=== PATIENT | male | born 1970 | race Caucasian/White ===

== ENCOUNTER 2019-12-07 14:55 | Outpatient (CLI) | payer MEDICARE, MEDICAID, SELFPAY ==
--- NOTE | 2019-12-07 15:00 | USCV_ITS ---
Teddy Renee Age: 49 Gender: M : 1970 Exam Date: 12/07/2019 15:11 Ordering Phys: Khari Argueta MD ([email or web address]) Technologist: Corinna Herrera Exam Location: [place] Indication: Recurrent CVA Risk Factors: Smoker Previous Vascular Surgery: None Right Brachial BP: / Left Brachial BP: / Right Left Velocity (cm/s) Spectral Plaque Velocity (cm/s) Spectral Plaque Syst/Diast Broadening Syst/Diast Broadening 126.80/22.10 Prox CCA 91.70 / 17.60 99.20/ 22.10 Mid CCA 61.55 / 16.10 60.10/ 19.70 Distal CCA 49.60 / 11.10 59.20/ 22.70 Prox ICA 46.20 / 16.30 108.10/43.50 Mid ICA 59.00 / 24.80 90.50/ 36.40 Distal ICA 83.00 / 31.70 105.50 ECA 141.90 1.09 ICA/CCA 1.45 Antegrade Vertebral Antegrade 32.10/ 11.50 cm/s 35.90/ 12.80 cm/s Tri Subclavian Tri 119.9 142.0 0 0 FINDINGS Mild diffuse plaques at the bifurcation and internal carotid arteries bilaterally Intimal thickening in the common carotid arteries bilaterally Antegrade flow in the vertebral arteries bilaterally Normal Doppler flow velocities in the external carotid and subclavian arteries bilaterally CONCLUSIONS Mild diffuse plaques at the bifurcation and internal carotid arteries bilaterally. Intimal thickening in the common carotid arteries bilaterally No significant stenosis, based on the above findings Dr Khari Argueta MD [facility] (Electronically Signed) Final Date: 07 December 2019 18:44 S
== END 2019-12-07 14:56 | disposition home or self-care (01) ==
LOC: RAD 14:59
PROVIDERS: Family Provider Family Medicine; PCP Family Medicine; Visit Provider Internal Medicine Cardiovascular Disease
DX: I63.89 Other cerebral infarction (principal)
CPT/HCPCS: 93880

== ENCOUNTER → 2020-06-19 12:58 | Outpatient (BNVA) | payer MEDICARE, MEDICAID, SELFPAY | PROVIDERS: PCP Family Medicine; Visit Provider Orthopaedic Surgery | DX: M54.5 Low back pain (principal); M47.816 Spondylosis without myelopathy or radiculopathy, lumbar region | CPT/HCPCS: 72114 ==

== ENCOUNTER → 2020-06-23 11:34 | Outpatient (BNVA) | payer MEDICARE, MEDICAID, SELFPAY | PROVIDERS: PCP Family Medicine; Visit Provider Orthopaedic Surgery | DX: Z01.812 Encounter for preprocedural laboratory examination (principal); M75.100 Unspecified rotator cuff tear or rupture of unspecified shoulder, not specified as traumatic; M25.519 Pain in unspecified shoulder | CPT/HCPCS: 87635 ==

== ENCOUNTER 2020-06-28 08:13 | Day surgery (SDC) | payer MEDICARE, MEDICAID, SELFPAY ==
[2020-06-27 09:54] VITALS: BMI 25.1
[2020-06-28] VITALS (9 sets, daily range): BP systolic 120–157; BP diastolic 75–101; PULSE 89–93; RESP 16–20; TEMP 36.2–36.6; O2SAT 92–100
[2020-06-28] MEDS: acetaminophen 500 mg Tablet 1000 MG PO (08:40)
[2020-06-28] MEDS: sodium chloride 0.9% 1,000 ML 30 ML IV (08:47)
[2020-06-28] MEDS: fentaNYL 50 mcg/mL INJ 2mL IVP (09:11)
[2020-06-28] MEDS: midazolam 1 mg/mL INJ 2 mL 2 MG IVP (09:12)
--- NOTE | 2020-06-28 09:12 | P.ANESASSM_ITS ---
Pre-Anesthetic Assessment Pre-Anesthetic Assessment: Height/Weight: Height 1.8 m Weight 81.647 kg Temp Pulse Resp BP Pulse Ox 97.1 F L 92 18 127/78 96 06/28/20 08:34 06/28/20 08:34 06/28/20 09:11 06/28/20 08:34 06/28/20 09:11 Preop Diagnosis: Rotator cuff tear with subacromial decompression left shoulder Proposed Procedure: Operation Date: 06/28/20 11:00 Proposed Procedures p Shoulder Arthroscopy with subacromial decompression 70825 [id number] M75.100(Left) - Mukul Gillette MD s Rotator Cuff Repair(Left) - Mukul Gillette MD Was Beta Anya taken within 24 hours: N/A Last intake: Intake Last Liquid Date 06/27/20 Last Liquid Time 21:00 Last Solid Date 06/27/20 Last Solid Time 19:00 Social: Social History: Tobacco and No alcohol Exam: Pre-Anes Outpt Exam: alert, oriented x 3 and regular rate & rhythm Additional Exam Findings (including area of procedure): BBS decreased, rhonchi Airway: Submandibular: WNL Cervical ROM: WNL MP: 2 Dentition: False Pulmonary: Pulmonary: COPD Comments: h/o DVT CV/HEM: CV/HEM: CAD, HTN, RI and PVD Neuropsych: Neuropsych: CVA and Deficit (None) Anesthetic Plan: ASA status: 3 Anesthesia: General Other: Left interscalen Risk of > 500 ml blood loss (7ml/kg in children): No Meds/Allergies Current Medications: Current Medications Generic Name Dose Route Start Last Admin Trade Name Freq PRN Reason Stop Dose Admin Fentanyl 50 mcg 06/28/20 07:54 06/28/20 09:11 Fentanyl 50 Mcg/ Ml Inj 2ml IVP 50 mcg Q10M PRN Administration Preop Pain Sodium Chloride 1,000 mls @ 30 ml s/hr 06/28/20 08:00 06/28/20 08:47 Sodium Chloride 0.9% IV 06/29/20 07:59 30 mls/hr .Q24H KHLOE Administration PFSH Anesthesia PFSH: Medical History Atypical chest pain The EKG done today, 10/19/2019 revealed normal sinus rhythm with a normal ST- T's. Normal OH and QRS duration. Fuchs cyst CAD (coronary artery disease) COPD (chronic obstructive pulmonary disease) Diabetes DVT (deep venous thrombosis) Environmental allergies Hip fracture requiring operative repair History of CVA (cerebrovascular accident) History of heart attack History of myocardial infarction Hx of emphysema Hypertension Hypothyroid Neuropathy Peripheral vascular disease Presence of IVC filter Type 1 diabetes mellitus Type 2 diabetes mellitus Surgical History H/O arthroscopic knee surgery History of shoulder surgery Hx of cataract extraction Family History Other CAD (coronary artery disease) Cancer Diabetes Hyperlipidemia Hypertension Lung disease Stroke Social History Smoking and tobacco status: current some day smoker cigarettes Packs smoked per day: 1 [ Other cigarette details: 0.5 to 1 pack a day ] Alcohol intake: current Alcohol intake frequency: holidays/special occasions only Alcohol type: wine Data Anesthesia Cardiac Studies: No Data to Display
--- NOTE | 2020-06-28 09:14 | ANES.PROC ---
Anesthesia Procedures Procedure/Date: 06/28/20 Nerve Block ^: Nerve Block 1: Main Anesthesia: general anesthesia Time Out Performed: Yes Consent: requested by attending/covering physician, from patient, risks and benefits reviewed and patient agrees to proceed Nerve block location: interscalene (Left) Anesthesia monitors applied: pulse oximetry, EKG, BP cuff and oxygen Nerve block position: semi sitting Anesthetic Used: ropivicaine 0.5% Amount of anesthesia used (mL): 30 Ultrasound used to: recognize landmarks Nerve Stimulator Used?: No Interscalene/Femoral BLK: 2 stimuplex 22 g needle used for position and inplane approach, visualize local anesthetic spread and no vascular puncture identified Injection: neg aspiration of heme and paresthesia +/- Patient Tolerated Procedure: well Complications: none
[2020-06-28 09:17] LABS: Glucose Point of Care 136 mg/dL (70-110)
--- NOTE | 2020-06-28 09:20 | W.PM.OPSUD ---
Surgery/Procedure H&P Update DATE OF PROCEDURE: June 28, 2020 DATE H&P PERFORMED: 06/13/20 PREOP DIAGNOSIS: Rotator cuff tear with subacromial decompression left shoulder PLANNED PROCEDURE: Operation Date: 06/28/20 11:00 Proposed Procedures p Shoulder Arthroscopy with subacromial decompression [id number] M75.100(Left) - Mukul Gillette MD s Rotator Cuff Repair(Left) - Mukul Gillette MD
--- NOTE | 2020-06-28 09:27 | SUR.PREOP ---
Talked with Dr Gillette about allergy to pcn and cephalexin. Dr. Gillette stated the keflex would be fine we would treat the neause.
[2020-06-28] MEDS: EPINEPHrine 1 mg/mL INJ 2 MG XX (10:24)
--- NOTE | 2020-06-28 11:37 | P.OP_ITS ---
Operative Report Date of procedure: June 28, 2020 Pre-op Diagnosis: Rotator cuff tear with subacromial decompression left shoulder Post-op diagnosis: same Post-op Diagnosis: Partial-thickness tear left rotator cuff, impingement, degenerative joint disease left acromioclavicular joint Post-op Findings: Same Procedure Done: Arthroscopic repair left rotator cuff with bio inductive implant, subacromial decompression, distal clavicle excision Implants: Billy and Nephew Regeneten implant Pathology: none sent Surgeon: Mukul Gillette Anesthesia: General and Nerve Block (Interscalene block) Estimated blood loss (mL): 25 Complications: None Findings: The patient had suture present with a previous rotator cuff repair. The repair itself appeared to be intact other than some irregularities on the bursal and articular aspect consistent with partial tearing. He had residual spurring of his anterior chromium and large ossicles of bone in the subacromial space just lateral to the acromioclavicular joint. He had marked enlargement and instability of the distal clavicle with scar tissue and islands of bone in the inferior lateral clavicle possibly suggesting a incomplete resection Condition: stable Disposition: PACU Procedure: The patient was taken to the operating room after an interscalene block was provided by anesthesia. He was given 2 g of Ancef. He was prepped and draped in the lateral position with his left arm in 15 pounds of traction. A timeout was performed. The shoulder was entered through a posterior portal into the glenohumeral joint. An anterior working portal was fashion. The glenohumeral arthroscopy was performed. He had evidence of a previous biceps tenotomy. Really no significant chondromalacia was identified over the humeral head or glenoid and labral tear attachment seem reasonably healthy. The scope was then moved to the subacromial space and anterior and lateral working Pap portal fashion. Inside the subacromial space prominent residual anterior spurring was identified over the acromion. This was outlined with the werewolf cautery and a 5 5 acromionizer was introduced to remove approximately 5 mm of anterior and inferior spurs converting the acromion to type I morphology. Along the anterior medial aspect of the acromion large ossicles of bone were identified inferior and medial to the acromioclavicular joint. These were circumferentially freed with the werewolf and removed with a grasper. This revealed atypical appearing distal clavicle. The inferior portion seemed more consistent with a scar tissue with islands of bone possibly suggesting a previous and may be incomplete resection. Working through the anterior portal and acromionizer was introduced and approximately 8 mm of distal clavicle resected. Hemostasis provided with the Billy and Nephew Werewolf. Final attention was focused on the rotator cuff. The rotator cuff itself appeared thinned in the centimeter area over its insertion although no full- thickness tearing could be identified. This was thought to be consistent with partial thickness tearing. Decision was made to proceed with a bio augmentation with Billy and Nephew Regeneten implant. Through a more anterior and inferior portal the regenerative graft was introduced. Through a more superior lateral portal for soft tissue gallo were placed, one at each medial corner and one centrally anteriorly and posteriorly. 2 bone gallo were placed laterally into the tuberosity securing the construct. The shoulder was irrigated with saline. Portals were closed with 3-0 Prolene. Sterile dressings were applied. The patient was extubated taken to recovery room in stable condition.
--- NOTE | 2020-06-28 12:12 | ANE.PACU2 ---
Inpatient post-anesthesia follow up: Airway intact: Yes Vital signs: Temperature 97.1 F Pulse Rate 93 Respiratory Rate 20 Blood Pressure 157/101 Pulse Oximetry 93 Oxygen Delivery Me thod Room Air Oxygen Flow Rate 6 Fraction of Inspir ed Oxygen Hydration adequate: Yes Nausea and vomiting: No Pain level: 1 Mental status: Baseline
== END 2020-06-28 13:02 | disposition home or self-care (01) ==
PROVIDERS: PCP Family Medicine; Visit Provider Orthopaedic Surgery
PROC: (CPT 29805; principal; 2020-06-28 11:00)
PROC: (CPT 29824; 2020-06-28 11:00)
DX: M75.102 Unspecified rotator cuff tear or rupture of left shoulder, not specified as traumatic (principal); J44.9 Chronic obstructive pulmonary disease, unspecified; Z86.718 Personal history of other venous thrombosis and embolism; I25.10 Atherosclerotic heart disease of native coronary artery without angina pectoris; I10 Essential (primary) hypertension; I25.2 Old myocardial infarction; Z86.73 Personal history of transient ischemic attack (TIA), and cerebral infarction without residual deficits; E11.9 Type 2 diabetes mellitus without complications; E03.9 Hypothyroidism, unspecified; F17.210 Nicotine dependence, cigarettes, uncomplicated
CPT/HCPCS: 29824; 29826; 29827; 12345; 36416; 64420; 76942; 82962; C1713; J0171; J0690; J2250; J2370; J2405; J2704; J2795; J3010; J3490; J7030

== ENCOUNTER → 2021-03-28 13:24 | Outpatient (BNVA) | payer MEDICARE, MEDICAID, SELFPAY | PROVIDERS: PCP Family Medicine; Visit Provider Orthopaedic Surgery | DX: Z01.812 Encounter for preprocedural laboratory examination (principal); Z20.822 Contact with and (suspected) exposure to COVID-19 | CPT/HCPCS: 87635 ==

== ENCOUNTER 2021-04-04 06:00 | Day surgery (SDC) | payer MEDICARE, MEDICAID, SELFPAY ==
[2021-04-03 14:47] VITALS: BMI 25.9
[2021-04-04] VITALS (12 sets, daily range): BP systolic 100–187; BP diastolic 76–121; PULSE 93–111; RESP 17–22; TEMP 36.2–36.7; O2SAT 93–100
[2021-04-04 06:35] LABS: Glucose Point of Care 150 mg/dL (70-110)
--- NOTE | 2021-04-04 06:35 | ECG_ITS ---
[facility] Test Date: 2021-04-04 Pat Name: Teddy Renee Department: Room: Gender: Male Radiology Physician Assistant: : 1970 Requested By: Mary Mcmillan Order Number: [id number] Diego MD: Roberto Pelaez M.D. Measurements Intervals [place] Rate: 97 P: 76 AL: 161 QRS: 75 QRSD: 101 T: 69 QT: 356 QTc: 453 Interpretive Statements SINUS RHYTHM No previous ECG available for comparison Electronically Signed On 04-04-2021 17:15:02 CDT by Roberto Pelaez M.D. [id number]
[2021-04-04] MEDS: sodium chloride 0.9% 1,000 ML 30 ML IV (06:48)
[2021-04-04] MEDS: acetaminophen 500 mg Tablet 1000 MG PO (06:48)
--- NOTE | 2021-04-04 06:50 | P.ANESASSM_ITS ---
Pre-Anesthetic Assessment Pre-Anesthetic Assessment: Height/Weight: Height 1.8 m Weight 84.368 kg Temp Pulse Resp BP Pulse Ox 98.0 F 94 17 100/76 95 04/04/21 06:12 04/04/21 06:12 04/04/21 06:12 04/04/21 06:12 04/04/21 06:12 Preop Diagnosis: Rotator cuff tear Left shoulder Proposed Procedure: Operation Date: 04/04/21 07:55 Proposed Procedures p Left Rotator Cuff Repair 02196 M75.102(Left) - Mukul Gillette MD s Shoulder Arthroscopy(Left) - Mukul Gillette MD Familial anesthetic complications: NOne Was Beta Anya taken within 24 hours: N/A Was Clonidine taken within 24 hours: N/A Last intake: Intake Last Liquid Date 04/03/21 Last Liquid Time 21:00 Last Solid Date 04/03/21 Last Solid Time 19:00 Social: Social History: No alcohol and No tobacco Exam: Pre-Anes Outpt Exam: alert, oriented x 3, clear to auscultation bilaterally and regular rate & rhythm Airway: MP: 3 Dentition: False CV/HEM: CV/HEM: CAD, DVT, HTN and IA Metabolic: Metabolic: DM Neuropsych: Neuropsych: CVA Anesthetic Plan: ASA status: 3 Anesthesia: General and Regional (specify below) Risk of > 500 ml blood loss (7ml/kg in children): No Meds/Allergies Current Medications: Current Medications Generic Name Dose Route Start Last Admin Trade Name Freq PRN Reason Stop Dose Admin Sodium Chloride 1,000 mls @ 30 ml s/hr 04/04/21 06:15 04/04/21 06:48 Sodium Chloride 0.9% IV 04/05/21 06:14 30 mls/hr .Q24H KHLOE Administration PFSH Anesthesia PFSH: Medical History Atypical chest pain The EKG done today, 10/19/2019 revealed normal sinus rhythm with a normal ST- T's. Normal MI and QRS duration. Fuchs cyst CAD (coronary artery disease) COPD (chronic obstructive pulmonary disease) Diabetes DVT (deep venous thrombosis) Environmental allergies Hip fracture requiring operative repair History of CVA (cerebrovascular accident) History of heart attack History of myocardial infarction Hx of emphysema Hypertension Hypothyroid Neuropathy Peripheral vascular disease Presence of IVC filter Type 1 diabetes mellitus Type 2 diabetes mellitus Surgical History H/O arthroscopic knee surgery History of shoulder surgery Hx of cataract extraction Family History Other CAD (coronary artery disease) Cancer Diabetes Hyperlipidemia Hypertension Lung disease Stroke Social History Smoking and tobacco status: current every day smoker cigarettes Packs smoked per day: 1 [ Other cigarette details: 0.5 to 1 pack a day ] Alcohol intake: current Alcohol intake frequency: holidays/special occasions only Alcohol type: wine Data Anesthesia Other Labs: Laboratory Results - last 48 hr 04/04/21 06:30 POC Glucose 150 H Cardiac Studies: No Data to Display
[2021-04-04 07:00] LABS: Basophils # 0.1 10^3/uL (0.0-0.1); Basophils % 1.1 %; Eosinophils # 0.4 10^3/uL (0.0-0.8); Eosinophils % 3.2 %; Hematocrit 50.4 % (42.0-52.0); Hemoglobin 17.1 g/dL (11.7-16.6); Lymphocytes # 2.6 10^3/uL (0.8-4.8); Lymphocytes % 23.3 %; Mean Corpuscular HGB Conc 33.9 g/dL (30.0-36.0); Mean Corpuscular Hemoglobin 33.4 pg (28.0-34.0); Mean Corpuscular Volume 98.4 fl (80-94); Mean Platelet Volume 8.8 fL (7.4-10.4); Monocytes # 0.9 10^3/uL (0.2-0.9); Monocytes % 8.1 %; Neutrophils # 7.01 10^3/uL (1.8-7.7); Neutrophils % 63.7 %; Nucleated Red Blood Cells % 0 %; Platelet Count 336 10^3/cmm (130-400); Red Blood Count 5.12 10^6/uL (4.1-5.3); Red Cell Distribution Width 13.3 % (12.1-15.1)
--- NOTE | 2021-04-04 07:07 | W.PM.OPSUD ---
Surgery/Procedure H&P Update DATE OF PROCEDURE: April 04, 2021 DATE H&P PERFORMED: 03/25/21 H&P UPDATE INFORMATION: I have reviewed H&P completed within last 30 days PREOP DIAGNOSIS: Rotator cuff tear Left shoulder PLANNED PROCEDURE: Operation Date: 04/04/21 07:55 Proposed Procedures p Left Rotator Cuff Repair 74883 M75.102(Left) - Mukul Gillette MD s Shoulder Arthroscopy(Left) - Mukul Gillette MD
[2021-04-04 07:17] LABS: Anion Gap 14.5 (5-19); Blood Urea Nitrogen 12 mg/dL (6-20); Calcium 8.4 mg/dL (8.5-10.5); Carbon Dioxide 23 mmol/L (22-29); Chloride 107 mmol/L (98-107); Glomerular Filtration Rate 225.9 mL/min (90-130); Glucose 144 mg/dL (65-115); Osmolality Calculated 294 mOsm/kg (285-295); Potassium 3.5 mmol/L (3.5-5.1); Sodium 141 mmol/L (136-145)
[2021-04-04] MEDS: midazolam 1 mg/mL INJ 2 mL 2 MG IVP (07:27)
--- NOTE | 2021-04-04 07:37 | ANES.PROC ---
Anesthesia Procedures Procedure/Date: 04/04/21 Nerve Block ^: Nerve Block 1: Main Anesthesia: general anesthesia Time Out Performed: Yes Consent: requested by attending/covering physician, from patient, from other, risks and benefits reviewed and patient agrees to proceed Nerve block location: interscalene (L) Anesthesia monitors applied: pulse oximetry, EKG, BP cuff and oxygen Nerve block position: semi sitting Anesthetic Used: ropivicaine 0.5% and with decadron (4 mg) Amount of anesthesia used (mL): 20 Ultrasound used to: recognize landmarks, visualize and ID brachial plexus and visualize and ID interscalene groove Nerve Stimulator Used?: No Interscalene/Femoral BLK: 2 stimuplex 22 g needle used for position and inplane approach, visualize local anesthetic spread and no vascular puncture identified Injection: neg aspiration of heme Patient Tolerated Procedure: well and no complications Complications: none
--- NOTE | 2021-04-04 07:39 | SUR.PREOP ---
0735 - Nerve block to shoulder was completed in pre-op by Dr. Mcmillan. Timeout was performed prior to start of procedure. Patient tolerated well.
--- NOTE | 2021-04-04 09:47 | P.OP_ITS ---
Operative Report Date of procedure: April 04, 2021 Pre-op Diagnosis: Rotator cuff tear Left shoulder, recurrent Post-op Diagnosis: Irrepairable left rotator cuff tear Post-op Findings: As above Procedure Done: Limited arthroscopic debridement left shoulder Implants: None Anesthesia: General and Nerve Block (Interscalene block) Estimated blood loss (mL): 5 Findings: The patient had a tear Dony tear of the leading edge of the supraspinatus tendon from the leading edge of the scalp scalp posteriorly approximately 2 cm. The tendon was retracted to the level of the glenoid and despite aggressive efforts at mobilization including release of the bursal and articular adhesions and release of the rotator interval no significant tendon could be mobilized for repair. The posterior portion of the rotator cuff previously passed appeared to be in tact. The subscapularis appeared to be intact. He had a flat acromion consistent with his acromioplasty and his biceps tendon was absent Condition: stable Disposition: PACU Brief History: Mr. Renee is a 50-year-old male who has undergone 4 previous rotator cuff repairs. The last consisted of a biological augmentation by myself in June of this year. He described doing well until this summer when he describes 2 injuries. 1 consists of a fall and the second consisted of injury lifting a battery. He has had persistent left shoulder pain since. An MRI suggested retearing of the rotator cuff. Mr. Renee was a counseled as to the concerns I have about the quality of his rotator cuff. His MRI is suggested some fatty infiltration of muscle. As this did appear to be a new traumatic incident I offered him diagnostic arthroscopy with potential rotator cuff repair. Procedure: The patient was given an interscalene block and taken to the operating room. He was given 2 g of Ancef. He was prepped and draped in the la teral position with his left arm in 15 pounds of traction. A timeout was performed. The shoulder was entered through a posterior portal and an anterior working portal was made. Abundant rotator cuff remnants were identified within the glenohumeral joint which were removed with an incisor shaver. The full- thickness tearing of the anterior supraspinatus was identified. The posterior rotator cuff and subscapularis appear to be generally intact. Arthroscopy was then removed to the subacromial space. Debridement was accomplished across the leading edge of the supraspinatus attempting to mobilize the the supraspinatus tendon. Despite aggressive mobilization the tendon could not be mobilized laterally or anteriorly. A release was accomplished of the rotator cuff interval without additional benefit. Finally the subscapularis tendon was outlined and freed anteriorly and posteriorly to the level of the coracoid. Efforts were made to retracted laterally and posteriorly without benefit. It was felt that the tear was a repairable. Arthroscopy equipment was removed. Portals were closed with 3-0 Prolene. Sterile dressings were applied. The patient was placed in a sling. Options for reconstruction at this point would include a superior capsular reconstruction or reverse total shoulder. The patient has poor biological tendon quality and a history of multiple repairs. A reverse total shoulder may be our best option.
--- NOTE | 2021-04-04 10:13 | SUR.PHASEI ---
0951 PT TO PACU AWAKES TO VOICE BUT QUICKLY BACK TO SLEEP RESP LABORED WITH AUDIBLE EXP WHEEZES, PT ENCOURAGED TO COUGH, HOB AT 30 , LT SHOULDER DRESSING D/I DISTAL FINGERS PINK WARM WITH FAST CAP REFILL. 1000 PT SATS GOOD BUT PT WORK INCREASING WITH LOUD EXP WHEEZES NOTED PT UNABLE TO CLEAR AIRWAYS WITH COUGHING, ALBUTEROL NEB GIVEN, PT BP REMAINS ELEVATED PT DENIES PAIN. 1012 PT REPOSITION UP IN BED PT TX DONE LUNGS WITH COURSE RHONCHI TO BASES AND EXP WHEEZES TO UPPER LOBES, PT MUCH MORE ALERT C/O OF PAIN TO LT NECK AREA, PT ON 3NC SATS 98%. WILL ADDRESS PAIN WITH ORAL MED IN PHASE 2.
== END 2021-04-04 11:17 | disposition home or self-care (01) ==
PROVIDERS: Anesthesiology; PCP Family Medicine; Visit Provider Orthopaedic Surgery
PROC: (CPT 29822; principal; 2021-04-04 07:50)
PROC: (CPT 29805; 2021-04-04 07:50)
DX: M25.512 Pain in left shoulder (principal); M75.102 Unspecified rotator cuff tear or rupture of left shoulder, not specified as traumatic; X50.0XXA Overexertion from strenuous movement or load, initial encounter; Z88.0 Allergy status to penicillin; Z86.73 Personal history of transient ischemic attack (TIA), and cerebral infarction without residual deficits; I25.2 Old myocardial infarction; F17.210 Nicotine dependence, cigarettes, uncomplicated; I25.10 Atherosclerotic heart disease of native coronary artery without angina pectoris
CPT/HCPCS: 29822; 36416; 64415; 76942; 80048; 82962; 85025; 93005; J0690; J1100; J2250; J2405; J2704; J2710; J2795; J3010; J3490; J7030; J7611

== ENCOUNTER 2021-07-09 13:26 | Outpatient (CLI) | payer MEDICARE, SELFPAY ==
--- NOTE | 2021-07-09 13:56 | US_ITS ---
WS: [id number] TESTICULAR ULTRASOUND HISTORY: N50.89 - Other specified disorders of the male genital or... COMPARISON: None available. TECHNIQUE: Real-time and color Doppler imaging or utilized to perform a testicular ultrasound. Right testicle: 3.3 cm x 3.0 cm x 2.7 cm. Normal size and echogenicity. No mass or torsion. Normal color Doppler is present throughout. Systolic and diastolic velocities are both present. No significant hydrocele. Right epididymis: There is a large cyst superior to the testicle with low-level echoes. This measures 2.7 x 3.2 x 2.7 cm and is most likely a spermatocele. Left testicle: 3.6 cm x 2.9 cm x 2.2 cm. Normal size and echogenicity. No mass or torsion. Normal color Doppler is present throughout. Systolic and diastolic velocities are both present. No significant hydrocele. Left epididymis: Normal epididymis with no increased vascularity. US/US scrotum [id number] IMPRESSION: 1. No testicular mass or torsion. 2. Palpable area in the RIGHT scrotum corresponds to a spermatocele measuring 2.7 x 3.2 x 2.7 cm.
== END 2021-07-09 13:27 | disposition home or self-care (01) ==
LOC: RAD 13:27
PROVIDERS: PCP Family Medicine; Visit Provider Surgery
DX: N50.89 Other specified disorders of the male genital organs (principal)
CPT/HCPCS: 76870

== ENCOUNTER → 2021-08-21 14:36 | Outpatient (BNVA) | payer MEDICARE, SELFPAY | PROVIDERS: PCP Family Medicine; Visit Provider Orthopaedic Surgery | DX: M25.512 Pain in left shoulder (principal) | CPT/HCPCS: 73030 ==

== ENCOUNTER → 2022-03-04 15:12 | Outpatient (BNVA) | payer MEDICARE, MEDICAID, SELFPAY | PROVIDERS: PCP Family Medicine; Referring Provider Family Medicine; Visit Provider Orthopaedic Surgery | DX: M12.812 Other specific arthropathies, not elsewhere classified, left shoulder (principal) | CPT/HCPCS: 99214 ==

== ENCOUNTER 2022-03-18 15:54 | Outpatient (CLI) | payer MEDICARE, MEDICAID, SELFPAY ==
--- NOTE | 2022-03-18 16:30 | CT_ITS ---
WS: [id number] CT LEFT SHOULDER, NONCONTRAST. HISTORY: shoulder surgery Technique: All CT scans at [facility] use at least one of these dose optimization techniques: automated exposure control; mA and/or kV adjustment per patient size (includes targeted exams where dose is matched to clinical indication); or iterative reconstruction. DLP: 454.14 mGy.cm COMPARISON: Radiographs 11/19/2021 Mild AC joint arthritis. Minimal joint space narrowing with hypertrophic osteophytes from the distal clavicle and the adjacent acromion. No os acromion. Osteophyte from the distal clavicle encroaches up on the rotator cuff. Mild glenohumeral joint space narrowing. Osteophytic ridging around the glenoid and humeral head. Sub chondral cystic changes and hypertrophic bone formation along the posterior lateral humeral head. Mod erate atrophy of the supraspinatus muscle. No acute fractures are identified. No significant joint ef fusion identified. CT/CT shoulder LT wo con* [id number] IMPRESSION: 1. Mild AC joint arthritis. 2. Mild narrowing of the glenohumeral joint space with hypertrophic bone forma tion. 3. Moderate supraspinatus muscle atrophy. 4. Osteophyte from the distal clavicle encroaches upon the rotator cuff tendon s.
== END 2022-03-18 15:55 | disposition home or self-care (01) ==
LOC: RAD 15:55
PROVIDERS: PCP Family Medicine; Visit Provider Orthopaedic Surgery
DX: M12.812 Other specific arthropathies, not elsewhere classified, left shoulder (principal); Z98.890 Other specified postprocedural states; M13.812 Other specified arthritis, left shoulder; M25.712 Osteophyte, left shoulder; M62.512 Muscle wasting and atrophy, not elsewhere classified, left shoulder; I82.522 Chronic embolism and thrombosis of left iliac vein; F17.210 Nicotine dependence, cigarettes, uncomplicated
CPT/HCPCS: 73200; 99203

== ENCOUNTER 2022-04-14 15:44 | Observation (INO) | payer MEDICARE, MEDICAID, SELFPAY ==
[2022-04-07 14:00] VITALS: BMI 25.9
[2022-04-07 14:26] LABS: Basophils # 0.2 10^3/uL (0.0-0.1); Basophils % 1.4 %; Eosinophils # 0.3 10^3/uL (0.0-0.8); Hematocrit 51.9 % (42.0-52.0); Hemoglobin 17.3 g/dL (11.7-16.6); Lymphocytes # 3.1 10^3/uL (0.8-4.8); Lymphocytes % 29.7 %; Mean Corpuscular HGB Conc 33.3 g/dL (30.0-36.0); Mean Platelet Volume 8.7 fL (7.4-10.4); Monocytes # 0.6 10^3/uL (0.2-0.9); Monocytes % 5.3 %; Neutrophils % 59.9 %; Nucleated Red Blood Cells % 0 %; Platelet Count 327 10^3/cmm (130-400); Red Blood Count 5.24 10^6/uL (4.1-5.3); Red Cell Distribution Width 13.5 % (12.1-15.1); White Blood Count 10.5 10^3/uL (4.0-10.0)
[2022-04-07 14:47] LABS: Blood Urea Nitrogen 11 mg/dL (6-20); Calcium 8.7 mg/dL (8.5-10.5); Carbon Dioxide 22 mmol/L (22-29); Chloride 105 mmol/L (98-107); Glucose 233 mg/dL (65-115); Osmolality Calculated 293 mOsm/kg (285-295); Sodium 138 mmol/L (136-145)
--- NOTE | 2022-04-07 15:15 | ANES.PREANE2 ---
Pre-Anesthetic Assessment Height/Weight: Height 1.8 m Weight 84.368 kg Preop Diagnosis: Rotator cuff tear Left shoulder, recurrent Operation Date: 04/14/22 10:30 Proposed Procedures p left reverse total shoulder [id number](Left) - Mukul Gillette MD Familial anesthetic complications: none Was Beta Anya taken within 24 hours: N/A Was Clonidine taken within 24 hours: N/A Social Tobacco and No alcohol Exam alert, oriented x 3 and regular rate & rhythm Airway Submandibular: within normal limits Cervical ROM: within normal limits Dentition: false Pulmonary Chronic Obstructive Pulmonary Disease CV/HEM Coronary Artery Disease, Hypertension and Peripheral Vascular Disease Metabolic Diabetes Mellitus and Thyroid Disease Musc/skel Lower Back Pain Neuropsych Cerebrovascular Accident Anesthetic Plan ASA status: 3 Anesthesia: General and Regional (specify below) (Left interscalene blk) Medications/Allergies Home Medications Medication Instructions Recorded Confirmed Last Taken Type apixaban 5 mg tablet (Eliquis) 5 mg PO BID 09/14/19 04/07/22 04/07/22 History baclofen 10 mg tablet 10 mg PO TID 09/14/19 04/07/22 04/03/21 History 2000 diazepam 5 mg tablet 5 mg PO BID PRN Anxiety 09/14/19 04/07/22 04/02/21 History empagliflozin 25 mg-linagliptin 5 1 tab PO QAM 09/14/19 04/07/22 04/03/21 08:00 History mg tablet (Glyxambi) furosemide 20 mg tablet (Lasix) 20 mg PO DAILY 09/14/19 04/07/22 04/03/21 08:00 History gabapentin 300 mg capsule 300 mg PO TID 09/14/19 04/07/22 04/02/21 History glipizide 10 mg tablet 20 mg PO BID 09/14/19 04/07/22 04/03/21 20:00 History montelukast 10 mg tablet 10 mg PO DAILY 09/14/19 04/07/22 04/03/21 08:00 History (Singulair) naloxone 4 mg/actuation nasal 4 mg intranasal Q2M PRN Sedation 09/14/19 04/07/22 06/27/20 History spray (Narcan) tiotropium bromide 18 mcg capsule 1 cap inhalation DAILY 09/14/19 04/07/22 04/03/21 12:00 History with inhalation device (Spiriva with HandiHaler) levothyroxine 150 mcg tablet 150 mcg PO DAILY 05/09/20 04/07/22 04/03/21 08:00 History pravastatin 20 mg tablet 20 mg PO DAILY 05/09/20 04/07/22 04/03/21 08:00 History oxycodone 5 mg tablet 5 mg PO Q4H PRN pain #40 tabs 06/28/20 04/07/22 04/04/21 05:00 Rx cetirizine 10 mg tablet 10 mg PO DAILY 04/07/22 04/07/22 Unknown History eszopiclone 2 mg tablet 2 mg PO BEDTIME PRN Insomnia 04/07/22 04/07/22 Unknown History nitroglycerin 0.4 mg sublingual 0.4 mg sublingual Q5M PRN Chest 04/07/22 04/07/22 Unknown History tablet (Nitrostat) Pain sennosides 8.6 mg-docusate sodium 1 tab-cap PO DAILY PRN Constipation 04/07/22 04/07/22 Unknown History 50 mg tablet (Senna-S) Allergies Allergy/AdvReac Type Severity Reaction Status Date / Time cephalexin [From Keflex] Allergy vomit Verified 03/18/22 15:14 Iodinated Contrast Media Allergy anuria Verified 03/18/22 15:14 Penicillins Allergy vomit Verified 03/18/22 15:14 semaglutide [From Ozempic] Allergy vomit Verified 03/18/22 15:14 warfarin Allergy overdose Verified 03/18/22 15:14 [facility] Anesthesia Medical History Atypical chest pain The EKG done today, 10/19/2019 revealed normal sinus rhythm with a normal ST-T's. Normal [place] and QRS duration. Fuchs cyst CAD (coronary artery disease) COPD (chronic obstructive pulmonary disease) Diabetes DVT (deep venous thrombosis) Environmental allergies Hip fracture requiring operative repair History of CVA (cerebrovascular accident) History of heart attack History of myocardial infarction Hx of emphysema Hypertension Hypothyroid Neuropathy Peripheral vascular disease Presence of IVC filter Type 1 diabetes mellitus Type 2 diabetes mellitus Surgical History H/O arthroscopic knee surgery History of shoulder surgery Hx of cataract extraction Family History Other CAD (coronary artery disease) Cancer Diabetes Hyperlipidemia Hypertension Lung disease Stroke Social History Smoking and tobacco status: current every day smoker cigarettes Packs smoked per day: 1 Years cigarettes smoked: 34 [ Other cigarette details: 0.5 to 1 pack a day ] Alcohol intake: current Alcohol intake frequency: holidays/special occasions only Alcohol type: wine Data Anesthesia : 04/07/22 14:17 04/07/22 14:17 Short CBC 04/07/22 Range/Units 14:17 WBC 10.5 H (4.0-10.0) 10^3/uL Hgb 17.3 H (11.7-16.6) g/dL Hct 51.9 (42.0-52.0) % MCV 99.0 H (80-94) fl Plt Count 327 (130-400) 10^3/cmm Neut % (Auto) 59.9 % Neut # (Auto) 6.30 (1.8-7.7) 10^3/uL BMP 04/07/22 14:17 Sodium 138 Potassium 4.0 Chloride 105 Carbon Dioxide 22 BUN 11 Creatinine 0.7 Glucose 233 H Calcium 8.7 Cardiac Studies: No Data to Display
[2022-04-14] VITALS (14 sets, daily range): BP systolic 109–173; BP diastolic 69–104; PULSE 84–127; RESP 16–19; TEMP 36.1–36.7; O2SAT 91–99
[2022-04-14] MEDS: sodium chloride 0.9% 1,000 ML 30 ML IV (08:31)
[2022-04-14] MEDS: oxyCODONE 20 mg ER (12 HR) Tablet PO (08:32)
[2022-04-14] MEDS: CELEcoxib 200 mg Capsule 400 MG PO (08:32)
[2022-04-14 08:33] LABS: Glucose Point of Care 158 mg/dL (70-110)
[2022-04-14] MEDS: gabapentin 300 mg Capsule PO ×2 (08:33→20:20)
--- NOTE | 2022-04-14 09:06 | P.ANESUD_ITS ---
Pre-Anesthetic Update Pre-Anesthetic Assessment: Date of Surgery/Procedure: 04/14/22 Preop Autumn gnosis: Chronic left rotator cuff tear Proposed Procedure: Operation Date: 04/14/22 10:40 Proposed Procedures p left reverse total shoulder [id number],M12.812(Left) - Mukul Gillette MD Any changes to Pre-Anesthetic Assessment?: No Last Intake: Intake Last Liquid Date 04/13/22 Last Liquid Time 20:00 Last Solid Date 04/13/22 Last Solid Time 20:00 Vitals: Temperature 97.4 F L 04/14/22 08:16 Temperature Source Temporal Artery S can 04/14/22 08:16 Pulse Rate 84 04/14/22 08:16 Respiratory Rate 16 04/14/22 08:16 Blood Pressure 117/71 04/14/22 08:16 Blood Pressure Lila n 86 04/14/22 08:16 Pulse Oximetry 96 04/14/22 08:16 Oxygen Delivery Me thod 04/14/22 08:19 Exam: Pre-Anes Outpt Exam: alert, oriented x 3, clear to auscultation bilaterally and regular rate & rhythm Other Pertinent Information: Other Pertinent Information: Patient stated he had some difficulty breathing after his last nerve block, but they placed oxygen on him and he did fine and was able to be discharged that same day. States he would like to have nerve block despite prior SOB. He is being admitted overnight as well, so supplmental o2 prn and close monitoring will be available., Cardiac Studies: No Data to Display
--- NOTE | 2022-04-14 09:07 | ANES.PROC ---
Anesthesia Procedures Procedure/Date: 04/14/22 Nerve Block ^: Nerve Block 1: Main Anesthesia: general anesthesia Time Out Performed: Yes Consent: requested by attending/covering physician, from patient, from other, risks and benefits reviewed and patient agrees to proceed Nerve block location: interscalene (L) Anesthesia monitors applied: pulse oximetry, EKG, BP cuff and oxygen Nerve block position: semi sitting Anesthetic Used: ropivicaine 0.5% (10 cc) and with decadron (4 mg) Ultrasound used to: recognize landmarks, visualize and ID brachial plexus and visualize and ID interscalene groove Nerve Stimulator Used?: No Interscalene/Femoral BLK: 2 stimuplex 22 g needle used for position and inplane approach and visualize local anesthetic spread Injection: neg aspiration of heme and paresthesia +/- Patient Tolerated Procedure: well and no complications Complications: none and pain with procedure Additional Comments: volume of 10 cc used to help prevent SOB
--- NOTE | 2022-04-14 10:26 | P.HP_ITS ---
Same Day Surgery H&P Indication for Procedure/HPI DATE OF PROCEDURE: April 14, 2022 CHIEF COMPLAINT/INDICATIONFOR SURGICAL PROCEDURE: Rotator cuff tear arthropathy left shoulder PREOP DIAGNOSIS: Chronic left rotator cuff tear PLANNED PROCEDURE: Operation Date: 04/14/22 10:40 Proposed Procedures p left reverse total shoulder [id number],M12.812(Left) - Mukul Gillette MD 50 year-old male patient here to follow up from post operative visit. He debridement of an irrrepairable tear 04/04/2021. He states that his pain has not gotten better. He states that he takes percocet without relief.? He is constant discomfort and loss of motion.? 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 He describes a history of for previous operation on the left shoulder rotator cuff tearing, of course the last done by myself.? He describes 3 right rotator cuff repairs but has done well with that.? Continues to take oxycodone for pain Medications/Allergies* Home Medications Medication Instructions Recorded Confirmed Type apixaban 5 mg tablet (Eliquis) 5 mg PO BID 09/14/19 04/07/22 History baclofen 10 mg tablet 10 mg PO TID 09/14/19 04/14/22 History diazepam 5 mg tablet 5 mg PO BID PRN Anxiety 09/14/19 04/14/22 History empagliflozin 25 mg-linagliptin 5 1 tab PO QAM 09/14/19 04/14/22 History mg tablet (Glyxambi) furosemide 20 mg tablet (Lasix) 20 mg PO DAILY 09/14/19 04/14/22 History gabapentin 300 mg capsule 300 mg PO TID 09/14/19 04/14/22 History glipizide 10 mg tablet 20 mg PO BID 09/14/19 04/14/22 History montelukast 10 mg tablet 10 mg PO DAILY 09/14/19 04/14/22 History (Singulair) naloxone 4 mg/actuation nasal 4 mg intranasal Q2M PRN Sedation 09/14/19 04/07/22 History spray (Narcan) tiotropium bromide 18 mcg capsule 1 cap inhalation DAILY 09/14/19 04/14/22 History with inhalation device (Spiriva with HandiHaler) levothyroxine 150 mcg tablet 150 mcg PO DAILY 05/09/20 04/14/22 History pravastatin 20 mg tablet 20 mg PO DAILY 05/09/20 04/14/22 History cetirizine 10 mg tablet 10 mg PO DAILY 04/07/22 04/14/22 History eszopiclone 2 mg tablet (Lunesta) 2 mg PO BEDTIME PRN Insomnia 04/07/22 04/14/22 History nitroglycerin 0.4 mg sublingual 0.4 mg sublingual Q5M PRN Chest 04/07/22 04/07/22 History tablet (Nitrostat) Pain sennosides 8.6 mg-docusate sodium 1 tab-cap PO DAILY PRN Constipation 04/07/22 04/14/22 History 50 mg tablet (Senna-S) Allergies/Adverse Reactions Allergy/AdvReac Type Severity Reaction Status Date / Time cephalexin [From Keflex] Allergy vomit Verified 03/18/22 15:14 Iodinated Contrast Media Allergy anuria Verified 03/18/22 15:14 Penicillins Allergy vomit Verified 03/18/22 15:14 semaglutide [From Ozempic] Allergy vomit Verified 03/18/22 15:14 warfarin Allergy overdose Verified 03/18/22 15:14 Current Medications: Generic Name Dose Route Start Last Admin Trade Name Freq PRN Reason Stop Dose Admin Sodium Chloride 1,000 mls @ 30 mls/hr 04/14/22 08:15 04/14/22 08:31 Sodium Chloride 0.9% IV 04/15/22 08:14 30 mls/hr .Q24H KHLOE Administration Pertinent History/Comorbid Conditions* Medical History (Updated 03/04/22 @ 16:01 by Mukul Gillette MD) Atypical chest pain The EKG done today, 10/19/2019 revealed normal sinus rhythm with a normal ST- T's. Normal [place] and QRS duration. Fuchs cyst CAD (coronary artery disease) COPD (chronic obstructive pulmonary disease) Diabetes DVT (deep venous thrombosis) Environmental allergies Hip fracture requiring operative repair History of CVA (cerebrovascular accident) History of heart attack History of myocardial infarction Hx of emphysema Hypertension Hypothyroid Neuropathy Peripheral vascular disease Presence of IVC filter Type 1 diabetes mellitus Type 2 diabetes mellitus Surgical History (Updated 05/09/20 @ 17:14 by Khari Argueta MD) H/O arthroscopic knee surgery History of shoulder surgery Hx of cataract extraction Family History (Updated 10/19/19 @ 15:12 by Tiffany Bang RN) Diabetes CAD (coronary artery disease) Hyperlipidemia Lung disease Cancer Hypertension Stroke Social History Smoking and tobacco status: current every day smoker cigarettes Packs smoked per day: 1 Years cigarettes smoked: 34 [ Other cigarette details: 0.5 to 1 pack a day ] Alcohol intake: current Alcohol intake frequency: holidays/special occasions only Alcohol type: wine Pertinent Exam Findings alert, oriented x 3, clear to auscultation bilaterally and regular rate & rhythm SHOULDER left Healed arthroscopy scars.? No erythema or swelling:? RANGE OF MOTION:? EXAMINED EXTREMITY ? Flexion:110 ? External Rotation:30 ? He can be abducted 70 degrees INSTABILITY: No instability? ROTATOR CUFF STRENGTH: ? ? ? EXAMINED EXTREMITY ? Abduction Supination: Diminished with pain ? Abduction Pronation: Diminished with pain ? External Rotation: Good with pain ? Belly Press: Negative VASCULAR: Strong radial pulses bilaterally. MOTOR:? 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 SENSATION: Intact to light touch Pertinent Data 3 views of the left shoulder are reviewed dated 11/19/2021.? Views consist of an AP of the shoulder in internal and external rotation and scapular Y radiograph.? There is narrowing of the glenohumeral joint.? There is proximal migration of the humeral head within the glenoid, findings are consistent with rotator cuff tear arthropathy.? R Recommendations Surgery/Procedure today Coding Level of Care Code Acute Heel Sprayer for Milagros Jacobson
[2022-04-14 12:32] LABS: Glucose Point of Care 134 mg/dL (70-110)
[2022-04-14] MEDS: ceFAZolin 2,000 MG in sodium chloride 0.9% (plus) 50 ML 100 MG IV ×2 (12:40→20:20)
--- NOTE | 2022-04-14 15:22 | XR_ITS ---
WS: [id number] Exam: XR shoulder LT min 2V* [id number] Date/Time of Exam: 04/14/2022 3:33 PM Reason For Exam: Left total shoulder Comparison 11/19/2021. A reverse left shoulder prosthesis has been placed and is in satisfactory position. Postoperative violetta nges in the adjacent soft tissues. XR/XR shoulder LT min 2V* [id number] IMPRESSION: 1. Reverse left shoulder prosthesis appearing to be in satisfactory position.
--- NOTE | 2022-04-14 15:25 | P.OP_ITS ---
Operative Report Date of procedure: April 14, 2022 Pre-op diagnosis: Preop Diagnosis Chronic left rotator cuff tear Post-op diagnosis: same Post-op findings: The patient had a complete tear of the supraspinatus and infraspinatus musculature. He had where of his superior glenoid. Procedure done: Right reverse total shoulder Implants: 1) Tornier Aequalis Ascend Flex 4P stem 2) Flex Shoulder System low offset tray +0mm 3) Flex Shoulder System 42 mm +6 mm reversed insert 4) Perform Reversed 29 mm full wedge baseplate 5) Aequalis PerForm Reversed 42 mm standard glenosphere 6) Glenoid screws: central 35 mm, superior 38 mm inferior 34 mm, anterior 26 mm, posterior 22 mm Pathology: none sent Surgeon: Mukul Gillette Anesthesia: General and Nerve Block (Interscalene block) Estimated blood loss (mL): 350 Findings: The patient had a complete tear of his supraspinatus and infraspinatus tendons with proximal migration of the humeral head and glenoid. He had dense adhesions between his deltoid and humeral head. He had evidence of a previous biceps t enodesis. There was wear of his superior glenoid with excessive superior slope. Appearance was consistent with the 17 degree superior slope seen on preoperative CT planning. Condition: stable Disposition: PACU Procedure: An intrascalene blocks provided the holding area. The patient was taken to the operating room and given a general anesthesia. They were given 2 g of Ancef. A Knowles stand was covered and use to support support the arm A timeout was performed. A 10 cm long incision was made over the deltopectoral groove and dissection carried out with a scalpel blade to the deltopectoral interval. The cephalic vein was identified and retracted laterally. Digital dissection was accomplished to free lesions beneath the deltoid and beneath the coracobrachialis musculature. An Jovanni medium tissue protector was used to retract the pectoralis major and the deltoid. The biceps tendon was absent in the bicipital groove suggesting a previous to the tenodesis.. Previous scarred retracted tear of the supraspinatus and infraspinatus was identified. The subscapularis and a capsule was then peeled off of the lesser tuberosity and fixed with 3 tape sutures in a locking Krak?w fashion from superior to inferior. Capsular release was accomplished across the inferior capsule from the glenoid. Utilizing electrocautery the glenoid was exposed circumferentially. The centering guide was used to place the central guidepin at sufficient inferior slope in accordance with our preoperative plan to correct the excessive superior tilt with the full wedge baseplate the wedged glenoid reamers were utilized. A 29 mm full wedge Aequalis PerForm baseplate was secured with a 35 x 6.5 mm central screw, a superior locking 38 mm screw, an inferior locking 34 mm screw, an anterior 26 mm screw and a posterior 22 mm screw. A standard 42 mm Aequalis perFORM Reversed Glenosphere was then placed. Attention was then focused on the humerus. Sequential and broaching of the canal was accomplished up to a size 4B stem with satisfactory stability.. A trial reduction with the 42+6 mm reversed insert provided adequate stability. The final humeral stem, reverse tray and insert were press-fit into place and the shoulder reduced with a stable reduction. 4 drill holes were then made in the bicipital groove. Sutures through the subscapularis were then passed through tunnels at the most superior suture through the most proximal hole. The second pair of sutures through the second hole, the third pair of sutures to the third hole in the fourth suture through the fourth hole. They were tied over a small Monty 4-hole mini plate. The wound was irrigated with a gentamycin antibiotic solution. The deltopectoral interval was closed with 0 Vicryl. The subcutaneous tissues were closed with 2-0 Stratafix. The skin was closed with a running 4-0 Stratafix. Sterile dressings were applied. The patient was placed in a sling, extubated and taken to recovery room in stable condition.
[2022-04-14] MEDS: CELEcoxib 200 mg Capsule PO (16:36)
[2022-04-14] MEDS: oxyCODONE 5 mg IR Tab/Cap PO (16:36)
[2022-04-14] MEDS: acetaminophen 500 mg Tablet 1000 MG PO ×2 (16:36→23:56)
[2022-04-14 16:45] LABS: Glucose Point of Care 156 mg/dL (70-110)
--- NOTE | 2022-04-14 17:00 | ANE.PACU2 ---
Inpatient post-anesthesia follow up: Airway intact: Yes Vital signs: Temperature 98.3 F Pulse Rate 113 Respiratory Rate 20 Blood Pressure 147/84 Pulse Oximetry 91 Oxygen Delivery Me thod Room Air Oxygen Flow Rate 3 Fraction of Inspir ed Oxygen Hydration adequate: Yes Nausea and vomiting: No Pain level: 1 Mental status: Baseline
[2022-04-14] MEDS: insulin lispro 100 unit/1 mL SUBCUT ×2 (17:02→21:08)
[2022-04-14] MEDS: morphine 4 mg/mL SDV 1 mL 2 MG IVP ×3 (18:42→23:56)
[2022-04-14] MEDS: baclofen 10 mg Tablet PO (20:20)
[2022-04-14] MEDS: oxyCODONE 5 mg IR Tab/Cap 15 MG PO (20:21)
[2022-04-14 20:34] LABS: Glucose Point of Care 293 mg/dL (70-110)
[2022-04-14] MEDS: diazePAM 5 mg Tablet PO (22:11)
[2022-04-15] VITALS (9 sets, daily range): BP systolic 125–150; BP diastolic 72–97; PULSE 106–124; RESP 16–20; TEMP 36.4–37; O2SAT 91–94
[2022-04-15] MEDS: oxyCODONE 5 mg IR Tab/Cap 15 MG PO ×2 (00:54→07:53)
--- NOTE | 2022-04-15 01:32 | PC.NURSE ---
after multiple attempts to bring pain down, pt is finally resting in bed, snoring with even respirations. present at bedside.
[2022-04-15] MEDS: morphine 4 mg/mL SDV 1 mL 2 MG IVP ×3 (02:24→11:14)
[2022-04-15] MEDS: ceFAZolin 2,000 MG in sodium chloride 0.9% (plus) 50 ML 100 MG IV (03:47)
[2022-04-15] MEDS: sodium chloride 0.9% 1,000 ML 80 ML IV (03:47)
[2022-04-15 06:49] LABS: Glucose Point of Care 143 mg/dL (70-110)
[2022-04-15] MEDS: atorvastatin 40 mg Tablet 20 MG PO (07:50)
[2022-04-15] MEDS: baclofen 10 mg Tablet PO (07:51)
[2022-04-15] MEDS: cetirizine 10 mg Tablet PO (07:51)
[2022-04-15] MEDS: FUROsemide 20 mg Tablet PO (07:52)
[2022-04-15] MEDS: apixaban 5 mg Tablet PO (07:52)
[2022-04-15] MEDS: levothyroxine 150 mcg Tablet PO (07:52)
[2022-04-15] MEDS: montelukast sodium 10 mg Tablet PO (07:53)
[2022-04-15] MEDS: insulin lispro 100 unit/1 mL SUBCUT (07:59)
[2022-04-15] MEDS: ipratropium 0.5 mg/2.5 mL Neb INHALATION (08:23)
--- NOTE | 2022-04-15 08:47 | P.DS_ITS ---
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 They remained hemodynamically stable. They was resumed on his Eliquis the day after surgery and placed in sequential compression dressings for DVT prophylaxis. The patient was mobilized with occupational therapy on the first postoperative day. Pain control was difficult as the patient was on a pain contract and consumed oxycodone preoperatively. As the pain was reasonably controlled and they were fully mobile they were discharged home. Physical Exam Narrative: On the day of discharge the patient's dressing was clean and dry. He had expected swelling of the left shoulder placement assistant with his anticoagulation. the patient's would fire his deltoid and their biceps. No distal neurovascular deficits were noted. Discharge Data Studies Completed and Pending Completed Studies During Hospitalization Category Date Time Status XR shoulder LT min 2V* [id number] Routine Exams 04/14/22 15:22 Completed Radiology Impressions Shoulder X-Ray 04/14/22 15:22 IMPRESSION: 1. Reverse left shoulder prosthesis appearing to be in satisfactory position. Laboratory Results WBC 10.5 10^3/uL (4.0-10.0) H 04/07/22 14:17 RBC 5.24 10^6/uL (4.1-5.3) 04/07/22 14:17 Hgb 17.3 g/dL (11.7-16.6) H 04/07/22 14:17 Hct 51.9 % (42.0-52.0) 04/07/22 14:17 MCV 99.0 fl (80-94) H 04/07/22 14:17 MCH 33.0 pg (28.0-34.0) 04/07/22 14:17 MCHC 33.3 g/dL (30.0-36.0) 04/07/22 14:17 RDW 13.5 % (12.1-15.1) 04/07/22 14:17 Plt Count 327 10^3/cmm (130-400) 04/07/22 14:17 MPV 8.7 fL (7.4-10.4) 04/07/22 14:17 Neut % (Auto) 59.9 % 04/07/22 14:17 Lymph % (Auto) 29.7 % 04/07/22 14:17 [place] % (Auto) 5.3 % 04/07/22 14:17 Eos % (Auto) 3.0 % 04/07/22 14:17 Baso % (Auto) 1.4 % 04/07/22 14:17 Neut # (Auto) 6.30 10^3/uL (1.8-7.7) 04/07/22 14:17 Lymph # (Auto) 3.1 10^3/uL (0.8-4.8) 04/07/22 14:17 [place] # (Auto) 0.6 10^3/uL (0.2-0.9) 04/07/22 14:17 Eos # (Auto) 0.3 10^3/uL (0.0-0.8) 04/07/22 14:17 Baso # (Auto) 0.2 10^3/uL (0.0-0.1) H 04/07/22 14:17 Nucleated RBC % (auto) 0 % 04/07/22 14:17 Nucleated RBCs # 0.0 /100WBC 04/07/22 14:17 Sodium 138 mmol/L (136-145) 04/07/22 14:17 Potassium 4.0 mmol/L (3.5-5.1) 04/07/22 14:17 Chloride 105 mmol/L (98-107) 04/07/22 14:17 Carbon Dioxide 22 mmol/L (22-29) 04/07/22 14:17 Anion Gap 15.0 (5-19) 04/07/22 14:17 BUN 11 mg/dL (6-20) 04/07/22 14:17 Creatinine 0.7 mg/dL (0.7-1.2) 04/07/22 14:17 GFR Calculation 118.0 mL/min (90-130) 04/07/22 14:17 Glucose 233 mg/dL (65-115) H 04/07/22 14:17 POC Glucose 143 mg/dL (70-110) H 04/15/22 06:31 Calculated Osmolality 293 mOsm/kg (285-295) 04/07/22 14:17 Calcium 8.7 mg/dL (8.5-10.5) 04/07/22 14:17 Vitals Last Vital Signs Temp 98.3 F 04/15/22 07:53 Pulse 113 H 04/15/22 08:23 Resp 20 H 04/15/22 08:23 BP 147/84 04/15/22 07:53 Pulse Ox 91 04/15/22 08:23 O2 Del Method 04/15/22 08:23 O2 Flow Rate 3 04/14/22 15:56 Discharge Plan Discharge Patient Disposition: Home Condition: Stable Prescriptions: New oxycodone 5 mg Tablet 15 mg PO Q4H PRN (Reason: Moderate Pain) 7 Days Qty: 60 0RF acetaminophen 500 mg Tablet 1,000 mg PO Q8H 14 Days Qty: 84 0RF celecoxib 200 mg Capsule 200 mg PO BID 14 Days Qty: 28 0RF Continued levothyroxine 150 mcg tablet 150 mcg PO DAILY pravastatin 20 mg tablet 20 mg PO DAILY montelukast [Singulair] 10 mg tablet 10 mg PO DAILY gabapentin 300 mg capsule 300 mg PO TID baclofen 10 mg tablet 10 mg PO TID glipizide 10 mg tablet 20 mg PO BID diazepam 5 mg tablet 5 mg PO BID PRN (Reason: Anxiety) Glyxambi 25-5 mg tablet 1 tab PO QAM Eliquis 5 mg tablet 5 mg PO BID Narcan 4 mg/actuation spray,non-aerosol 4 mg INTRANASAL Q2M PRN (Reason: Sedation) furosemide [Lasix] 20 mg tablet 20 mg PO DAILY Spiriva with HandiHaler 18 mcg capsule, w/inhalation device 1 cap INHALATION DAILY eszopiclone [Lunesta] 2 mg Tablet 2 mg PO BEDTIME PRN (Reason: Insomnia) cetirizine 10 mg Tablet 10 mg PO DAILY sennosides-docusate sodium [Senna-S] 8.6-50 mg Tablet 1 tab-cap PO DAILY PRN (Reason: Constipation) Nitrostat 0.4 mg Tablet, Sublingual 0.4 mg SUBLINGUAL Q5M PRN (Reason: Chest Pain) Rx Instructions: do not exceed 3 doses per episode Discontinued oxycodone 5 mg tablet 5 mg PO Q4H PRN (Reason: pain) Qty: 40 0RF Discharge Orders: Discharge Order (Routine); Ordered 04/15/22 Ordered By: Mukul Romero Referrals: Mukul Romero MD [Physician] - 04/29/22 1:15 pm Discharge Diet: Advance as tolerated Discharge Activity: Limit activity as instructed Patient Instructions: Opioid Safety Activity Restrictions/Additional Instructions: Okay to shower. No soaking incision in tub Leave arm in sling except when performing exercise Apply FirstIce up to 20 min/hr for pain and swelling Take Celebrex twice a day for the next 15 days for pain , discontinue other anti-inflammatories Take Tylenol 500mg (up to 2 tabs) 3 times a day for mild pain take oxycodone for breakthrough pain. Exercises per Occupational Therapy. We will arrange outpatient therapy in [place] IF HAVE ANY PROBLEMS OR QUESTIONS CALL [facility] AT AND ASK TO HAVE DR. ROMERO PAGED. 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
[2022-04-15] MEDS: gabapentin 300 mg Capsule PO (11:26)
[2022-04-15] MEDS: CELEcoxib 200 mg Capsule PO (11:26)
--- NOTE | 2022-04-15 12:17 | PC.CHAP ---
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 [] Patient/Family/Request visit [] Outpatient visit [] Follow-up visit [] Physician referral [] Code/Alert [x] Routine visit [] Staff referral [] Actively dying [] Patient sleeping [x] Family support [] [] Out of room [] Palliative care [] [] Receiving care in room [] Pre-surgical visit [] Trauma [] Long length of stay [] ICU visit [] Other: Relational/Emotional Strength [] Patient feels connected with others/family/visitors/staff [] Distress [] Loneliness/isolation [] Abandonment Spirituality of Patient [] Person of Dina [] Attends Baptism of their Dina [x] Believes in Prayer [] Reads Bible or Alevism materials [] There are Spiritual issues to be addressed Print Inspector Interventions [x] Prayer [] Active listening [] Non-anxious presence [] Spiritual/emotional support [] Crisis/trauma care [] Spiritual counseling [] Bereavement support [] Provided bereavement packet [] Provided Bible/devotional materials [] Provided toy/stuffed animal, coloring book to patient or family member [] Provided Communion [] Anointing/Luke [] Salvation [] Completed spiritual assessment [] Other: Impact on Illness or Injury [] Angry [] Fearful [] Anxious [] Often cries [] Exhaustion [] Unable to work [] Unable to attend zoroastrian [] Unable to walk/stand [] Unable to read [] Unable to drive [] Unable to eat/drink [] Unable to sleep [] Unable to be with family [] Patient intubated [] Other: Summary Time spent with patient 15 min
== END 2022-04-15 12:57 | disposition home or self-care (01) ==
LOC: MEDSURG 15:44
PROVIDERS: Anesthesiology; Admitting Provider Orthopaedic Surgery; PCP Family Medicine; Visit Provider Orthopaedic Surgery
PROC: (CPT 23472; principal; 2022-04-14 10:20)
DX: M75.122 Complete rotator cuff tear or rupture of left shoulder, not specified as traumatic (principal); E11.65 Type 2 diabetes mellitus with hyperglycemia; I25.10 Atherosclerotic heart disease of native coronary artery without angina pectoris; J44.9 Chronic obstructive pulmonary disease, unspecified; Z86.718 Personal history of other venous thrombosis and embolism; I10 Essential (primary) hypertension; E03.9 Hypothyroidism, unspecified
CPT/HCPCS: 23472; 36416; 73030; 80048; 82962; 85025; 94640; 96372; 97165; C1713; C1776; G0378; J0690; J1100; J1580; J1815; J2270; J2370; J2405; J2704; J2795; J3010; J3490; J7030; J7644

== ENCOUNTER → 2022-04-29 13:26 | Outpatient (BNVA) | payer MEDICARE, MEDICAID, SELFPAY | PROVIDERS: PCP Family Medicine; Visit Provider Orthopaedic Surgery | DX: Z96.612 Presence of left artificial shoulder joint (principal) | CPT/HCPCS: 73030; 99024 ==

== ENCOUNTER → 2022-05-28 13:57 | Outpatient (BNVA) | payer MEDICARE, MEDICAID, SELFPAY | PROVIDERS: PCP Family Medicine; Visit Provider Orthopaedic Surgery | DX: Z47.1 Aftercare following joint replacement surgery (principal); Z96.612 Presence of left artificial shoulder joint; G56.22 Lesion of ulnar nerve, left upper limb | CPT/HCPCS: 73030; 99024 ==

== ENCOUNTER → 2022-07-02 13:45 | Outpatient (BNVA) | payer MEDICARE, MEDICAID, SELFPAY | PROVIDERS: PCP Family Medicine; Visit Provider Orthopaedic Surgery | DX: Z96.612 Presence of left artificial shoulder joint (principal) | CPT/HCPCS: 99024 ==

== ENCOUNTER → 2022-07-30 13:47 | Outpatient (BNVA) | payer MEDICARE, MEDICAID, SELFPAY | PROVIDERS: PCP Family Medicine; Visit Provider Orthopaedic Surgery | DX: Z96.612 Presence of left artificial shoulder joint (principal) | CPT/HCPCS: 99212 ==

== ENCOUNTER → 2023-01-06 13:15 | Outpatient (BNVA) | payer MEDICARE, MEDICAID, SELFPAY | PROVIDERS: PCP Family Medicine; Referring Provider Emergency Medicine; Visit Provider Nurse Practitioner Family | DX: Z96.612 Presence of left artificial shoulder joint (principal); S49.92XA Unspecified injury of left shoulder and upper arm, initial encounter; X58.XXXA Exposure to other specified factors, initial encounter | CPT/HCPCS: 73030; 99213 ==

== ENCOUNTER 2023-02-06 15:10 | Emergency (ER) | payer MEDICARE, MEDICAID, SELFPAY ==
[2023-02-06 15:12] VITALS: BP 134/77; PULSE 97; RESP 18; TEMP 36.4; O2SAT 94; BMI 27.4
[2023-02-06 16:34] LABS: Basophils # 0.2 10^3/uL (0.0-0.1); Basophils % 1.5 %; Eosinophils # 0.2 10^3/uL (0.0-0.8); Eosinophils % 2.1 %; Hematocrit 53.4 % (37-53); Lymphocytes % 30.2 %; Mean Corpuscular HGB Conc 33.1 g/dL (30-55); Mean Corpuscular Hemoglobin 32.9 pg (27-33); Mean Corpuscular Volume 99.3 fl (82-101); Mean Platelet Volume 8.7 fL (7.4-10.4); Monocytes # 0.7 10^3/uL (0.2-0.9); Monocytes % 7.2 %; Neutrophils # 5.82 10^3/uL (1.8-7.7); Neutrophils % 58.5 %; Nucleated Red Blood Cells % 0 %; Platelet Count 295 10^3/cmm (157-399); Red Blood Count 5.38 10^6/uL (3.85-5.65); Red Cell Distribution Width 13.3 % (12.1-15.1); White Blood Count 9.96 10^3/uL (3.29-11.43)
[2023-02-06 16:49] LABS: Alanine Aminotransferase 17 U/L (0-41); Albumin Level 4.2 g/dL (3.5-5.2); Alkaline Phosphatase 142 U/L (40-130); Anion Gap 15.1 (5-19); Aspartate Amino Transferase 13 U/L (0-40); Blood Urea Nitrogen 17 mg/dL (6-20); Calcium 8.9 mg/dL (8.5-10.5); Carbon Dioxide 27 mmol/L (22-29); Chloride 102 mmol/L (98-107); Glomerular Filtration Rate 77.9 mL/min (90-130); Glucose 122 mg/dL (65-115); Osmolality Calculated 293 mOsm/kg (285-295); Potassium 4.1 mmol/L (3.5-5.1); Sodium 140 mmol/L (136-145); Total Bilirubin 0.3 mg/dL (0.15-1.2); Total Protein 7.2 g/dL (6.6-8.7)
[2023-02-06 16:57] LABS: Slide Review Slide Review Perform
--- NOTE | 2023-02-06 17:34 | W.ED.ABDPA2 ---
Documented by User: Luke Jones DO 02/07/23 11:25 HPI - Abdominal Pain General: Chief Complaint: Abdominal Pain Stated Complaint: right side back pain Time Seen by Provider: 02/06/23 17:01 Source: patient Mode of arrival: ambulatory History of Present Illness: 52-year-old male presents with right-sided flank/back pain. Localizes the pain superior to the posterior iliac crest. No dysuria urgency or frequency no nausea vomiting diarrhea no hematochezia melena hematemesis or coffee-ground emesis. No fever sweats chills no rash or skin changes that he has noticed. He does not recall any triggering event. Has tried [id number] and prescription pain medications at home with no relief MD elicited complaint: flank pain Pertinent past history: none Onset (ago): day(s) Pain Consistency: constant Location: R flank (Side and low back on the right) Severity: moderate Quality: sharp Radiation: none Exacerbating factors: nothing Relieving factors: nothing Associated Symptoms: Denies anorexia, belching, bloating, change in bowel habits, change in stool character, chills, coffee ground emesis, constipation, GI cramping, diarrhea, dyspepsia, dysuria, excessive flatus, fever(s), heartburn, hematochezia, hematuria, hematemesis, fecal incontinence, loose stools, melena, nausea, poor appetite, syncope and vomiting Review of Systems Const: Denies: fever(s), chills, fatigue or malaise ENMT: Denies: throat pain, ear or mastoid pain, nasal discharge or nasal congestion Card: Denies: chest pain or syncope Resp: Denies: dyspnea, productive cough or non-productive cough GI: Denies: abdominal pain, nausea, vomiting, hematemesis, coffee ground emesis, heartburn, diarrhea, constipation, bloating, GI cramping, belching, excessive flatus, fecal incontinence, change in bowel habits, change in stool character, hematochezia or melena : Reports: flank pain; Denies: dysuria, urinary frequency or hematuria Musc: Reports: back pain Skin/Breast: Denies: rash or pruritus PFSH ED PFSH: Medical History Atypical chest pain The EKG done today, 10/19/2019 revealed normal sinus rhythm with a normal ST-T's. Normal AL and QRS duration. Fuchs cyst CAD (coronary artery disease) COPD (chronic obstructive pulmonary disease) Diabetes Diabetes mellitus DVT (deep venous thrombosis) Environmental allergies Hip fracture requiring operative repair History of CVA (cerebrovascular accident) History of heart attack History of myocardial infarction Hx of emphysema Hypertension Hypothyroid Neuropathy Peripheral vascular disease Presence of IVC filter Type 1 diabetes mellitus Type 2 diabetes mellitus Surgical History H/O arthroscopic knee surgery History of carpal tunnel repair History of shoulder surgery History of shoulder surgery Hx of cataract extraction Family History Other CAD (coronary artery disease) Cancer Diabetes Hyperlipidemia Hypertension Lung disease Stroke Social History Smoking and tobacco status: current every day smoker cigarettes Packs smoked per day: 1 Years cigarettes smoked: 34 [ Other cigarette details: 0.5 to 1 pack a day ] Alcohol intake: current Alcohol intake frequency: holidays/special occasions only Alcohol type: wine Substance/Drug Use: never Physical Exam Const: GENERAL APPEARANCE: cooperative and comfortable ORIENTATION/CONSCIOUSNESS: Yes awake, Yes oriented to person, Yes oriented to place and Yes oriented to time HENMT: COMMON NORMALS: normocephalic, atraumatic and hearing grossly normal bilaterally HEAD & SCALP: normocephalic and atraumatic Resp: COMMON NORMALS: normal respiratory effort, No retractions, No use of accessory muscles and clear to auscultation bilaterally AUSCULTATION: clear to auscultation bilaterally Cardio: COMMON NORMALS: regular rate, regular rhythm and No murmurs present (Cardio) RATE: regular rate RHYTHM: regular rhythm GI: COMMON NORMALS: Soft to palpation and No hepatosplenomegaly present AUSCULTATION: Yes normoactive bowel sounds PALPATION: Yes Soft to palpation, No Tenderness to palpation present (GI), No Guarding due to palpation present (GI) and Yes No hepatosplenomegaly present Extremity: COMMON NORMALS: normal to inspection, capillary refill normal, no clubbing, cyanosis or edema, no calf tenderness and no pedal edema Neuro: SENSORIUM/ORIENTATION: Yes oriented to person, Yes oriented to place and Yes oriented to time GAIT: Yes Normal gait present MOTOR EXAM: 5/5 motor strength present throughout DEEP TENDON REFLEXES: Right patellar reflex intensity grade: 2+ and Left patellar reflex intensity grade: 2+ Psych: OTHER: Straight leg raising is negative. Skin: COMMON NORMALS: no rashes or lesions noted GENERAL SKIN EXAM: no rashes or lesions noted Course Vital Signs: Vital signs: Vital Signs Temperature 97.6 F 02/06/23 15:12 Pulse Rate 96 02/06/23 20:14 Respiratory Rate 16 02/06/23 20:14 Blood Pressure 134/77 02/06/23 15:12 Pulse Oximetry 93 02/06/23 20:14 Oxygen Delivery Me thod Room Air 02/06/23 18:54 MDM - Abdominal Pain Medical Decision Making Care signed out to Dr. Carpio at change of shift. See final notes for diagnosis and disposition. 52-year-old male complains of right pain over his iliac crest. He states the pain is still there. He was checked out to me by Dr. Jones at shift change. He was given 4 mg of morphine without much relief. He has a contrast allergy. His white blood cell count is normal. Hemoglobin is 17.7. He is a smoker. BMP is not remarkable. He has an IVC filter in place. CT of the abdomen pelvis is nonacute. Symptoms will be treated. He will be allowed discharge. He is anticoagulated. His urinalysis is as yet unavailable at the time of discharge. Lab Data 02/06/23 16:07 02/06/23 16:07 Labs/Radiology: Radiology Impressions Abdomen/Pelvis CT 02/06/23 18:05 IMPRESSION: 1. No acute findings. 2. Infrarenal IVC filter with the limbs extending through the outer wall of the vessel. 3. Small pulmonary nodules measuring up to 3 mm. For patients at low risk (minimal or absent history of smoking and of other known risk factors), no routine follow-up is indicated. For patients at high risk (history of smoking or of other known risk factors), consider optional CT Chest at 12 months. (Reference: Yael) References: Yael Bryant et al. Guidelines for Management of Incidental Pulmonary Nodules Detected on CT Images: From the Fleischner Society 2017. Radiology. 2017;284(1):228-243. COMMENTS: For patients with an IVC filter, recommend assessment for a management plan for the patient's IVC filter. If there is no established management plan, recommend referral to an interventional clinician on a nonemergent basis for evaluation. Laboratory Results WBC 9.96 10^3/uL (3.29-11.43) 02/06/23 16:07 RBC 5.38 10^6/uL (3.85-5.65) 02/06/23 16:07 Hgb 17.70 g/dL (11.27-16.99) H 02/06/23 16:07 Hct 53.4 % (37-53) H 02/06/23 16:07 MCV 99.3 fl (82-101) 02/06/23 16:07 MCH 32.9 pg (27-33) 02/06/23 16:07 MCHC 33.1 g/dL (30-55) 02/06/23 16:07 RDW 13.3 % (12.1-15.1) 02/06/23 16:07 Plt Count 295 10^3/cmm (157-399) 02/06/23 16:07 MPV 8.7 fL (7.4-10.4) 02/06/23 16:07 Neut % (Auto) 58.5 % 02/06/23 16:07 Lymph % (Auto) 30.2 % 02/06/23 16:07 [place] % (Auto) 7.2 % 02/06/23 16:07 Eos % (Auto) 2.1 % 02/06/23 16:07 Baso % (Auto) 1.5 % 02/06/23 16:07 Neut # (Auto) 5.82 10^3/uL (1.8-7.7) 02/06/23 16:07 Lymph # (Auto) 3.0 10^3/uL (0.8-4.8) 02/06/23 16:07 [place] # (Auto) 0.7 10^3/uL (0.2-0.9) 02/06/23 16:07 Eos # (Auto) 0.2 10^3/uL (0.0-0.8) 02/06/23 16:07 Baso # (Auto) 0.2 10^3/uL (0.0-0.1) H 02/06/23 16:07 Nucleated RBC % (auto) 0 % 02/06/23 16:07 Nucleated RBCs # 0.0 /100WBC 02/06/23 16:07 Sodium 140 mmol/L (136-145) 02/06/23 16:07 Potassium 4.1 mmol/L (3.5-5.1) 02/06/23 16:07 Chloride 102 mmol/L (98-107) 02/06/23 16:07 Carbon Dioxide 27 mmol/L (22-29) 02/06/23 16:07 Anion Gap 15.1 (5-19) 02/06/23 16:07 BUN 17 mg/dL (6-20) 02/06/23 16:07 Creatinine 1.0 mg/dL (0.7-1.2) 02/06/23 16:07 GFR Calculation 77.9 mL/min (90-130) L 02/06/23 16:07 Glucose 122 mg/dL (65-115) H 02/06/23 16:07 Calculated Osmolality 293 mOsm/kg (285-295) 02/06/23 16:07 Calcium 8.9 mg/dL (8.5-10.5) 02/06/23 16:07 Total Bilirubin 0.3 mg/dL (0.15-1.2) 02/06/23 16:07 AST 13 U/L (0-40) 02/06/23 16:07 ALT 17 U/L (0-41) 02/06/23 16:07 Alkaline Phosphatase 142 U/L (40-130) H 02/06/23 16:07 Total Protein 7.2 g/dL (6.6-8.7) 02/06/23 16:07 Albumin 4.2 g/dL (3.5-5.2) 02/06/23 16:07 Globulin 3.0 g/dL (1.3-4.6) 02/06/23 16:07 Discharge Plan Discharge Patient Disposition: Home Clinical Impression: Right flank pain Condition: Stable Prescriptions: New hydrocodone-acetaminophen 5-325 mg tablet 1 tab PO Q8H PRN (Reason: pain) Qty: 7 0RF ondansetron 4 mg film 4 mg PO DAILY PRN (Reason: nausea and vomiting) Qty: 10 0RF No Action levothyroxine 150 mcg tablet 150 mcg PO DAILY pravastatin 20 mg tablet 20 mg PO DAILY montelukast [Singulair] 10 mg tablet 10 mg PO DAILY gabapentin 300 mg capsule 300 mg PO TID baclofen 10 mg tablet 10 mg PO TID glipizide 10 mg tablet 20 mg PO BID diazepam 5 mg tablet 5 mg PO BID PRN (Reason: Anxiety) Glyxambi 25-5 mg tablet 1 tab PO QAM Eliquis 5 mg tablet 5 mg PO BID Narcan 4 mg/actuation spray,non-aerosol 4 mg INTRANASAL Q2M PRN (Reason: Sedation) furosemide [Lasix] 20 mg tablet 20 mg PO DAILY Spiriva with HandiHaler 18 mcg capsule, w/inhalation device 1 cap INHALATION DAILY pregabalin [Lyrica] 75 mg capsule 75 mg PO TID glipizide 5 mg tablet 5 mg PO BID metformin 500 mg tablet 500 mg PO TID (DME) standing walker See Rx Instructions .Route .MEDSUPPLY Qty: 1 0RF Rx Instructions: As directed eszopiclone [Lunesta] 2 mg Tablet 2 mg PO BEDTIME PRN (Reason: Insomnia) cetirizine 10 mg Tablet 10 mg PO DAILY sennosides-docusate sodium [Senna-S] 8.6-50 mg Tablet 1 tab-cap PO DAILY PRN (Reason: Constipation) Nitrostat 0.4 mg Tablet, Sublingual 0.4 mg SUBLINGUAL Q5M PRN (Reason: Chest Pain) Rx Instructions: do not exceed 3 doses per episode Discharge Orders: Discharge ED (Routine); Ordered 02/06/23 Ordered By: Rudolph Carpio Referrals: Shay Campbell [Primary Care Provider] - Patient Instructions: Flank Pain (ED), Opioid Safety, Pain Management Activity Restrictions/Additional Instructions: Return for fever, vomiting liquids or medications, worsening pain despite treatment, any other concerning symptoms. See your doctor at the beginning of the week. Coding Level of Care Code ED Color Expert for g Fwd Documented by User: [email or web address] Carpio DO 02/06/23 20:03 HPI - Abdominal Pain General: Chief Complaint: Abdominal Pain Stated Complaint: right side back pain Time Seen by Provider: 02/06/23 17:01 History of Present Illness: Patient presenting with right-sided iliac pain [facility] ED PFSH: Medical History Atypical chest pain The EKG done today, 10/19/2019 revealed normal sinus rhythm with a normal ST-T's. Normal AL and QRS duration. Fuchs cyst CAD (coronary artery disease) COPD (chronic obstructive pulmonary disease) Diabetes Diabetes mellitus DVT (deep venous thrombosis) Environmental allergies Hip fracture requiring operative repair History of CVA (cerebrovascular accident) History of heart attack History of myocardial infarction Hx of emphysema Hypertension Hypothyroid Neuropathy Peripheral vascular disease Presence of IVC filter Type 1 diabetes mellitus Type 2 diabetes mellitus Surgical History H/O arthroscopic knee surgery History of carpal tunnel repair History of shoulder surgery History of shoulder surgery Hx of cataract extraction Family History Other CAD (coronary artery disease) Cancer Diabetes Hyperlipidemia Hypertension Lung disease Stroke Social History Smoking and tobacco status: current every day smoker cigarettes Packs smoked per day: 1 Years cigarettes smoked: 34 [ Other cigarette details: 0.5 to 1 pack a day ] Alcohol intake: current Alcohol intake frequency: holidays/special occasions only Alcohol type: wine Substance/Drug Use: never Course Vital Signs: Vital signs: Vital Signs Temperature 97.6 F 02/06/23 15:12 Pulse Rate 96 02/06/23 20:14 Respiratory Rate 16 02/06/23 20:14 Blood Pressure 134/77 02/06/23 15:12 Pulse Oximetry 93 02/06/23 20:14 Oxygen Delivery Me thod Room Air 02/06/23 18:54 MDM - Abdominal Pain Medical Decision Making 52-year-old male complains of right pain over his iliac crest. He states the pain is still there. He was checked out to me by Dr. Jones at shift change. He was given 4 mg of morphine without much relief. He has a contrast allergy. His white blood cell count is normal. Hemoglobin is 17.7. He is a smoker. BMP is not remarkable. He has an IVC filter in place. CT of the abdomen pelvis is nonacute. Symptoms will be treated. He will be allowed discharge. He is anticoagulated. His urinalysis is as yet unavailable at the time of discharge. Lab Data 02/06/23 16:07 02/06/23 16:07 Labs/Radiology: Radiology Impressions Abdomen/Pelvis CT 02/06/23 18:05 IMPRESSION: 1. No acute findings. 2. Infrarenal IVC filter with the limbs extending through the outer wall of the vessel. 3. Small pulmonary nodules measuring up to 3 mm. For patients at low risk (minimal or absent history of smoking and of other known risk factors), no routine follow-up is indicated. For patients at high risk (history of smoking or of other known risk factors), consider optional CT Chest at 12 months. (Reference: Yael) References: Yael Bryant, et al. Guidelines for Management of Incidental Pulmonary Nodules Detected on CT Images: From the Fleischner Society 2017. Radiology. 2017;284(1):228-243. COMMENTS: For patients with an IVC filter, recommend assessment for a management plan for the patient's IVC filter. If there is no established management plan, recommend referral to an interventional clinician on a nonemergent basis for evaluation. Laboratory Results WBC 9.96 10^3/uL (3.29-11.43) 02/06/23 16:07 RBC 5.38 10^6/uL (3.85-5.65) 02/06/23 16:07 Hgb 17.70 g/dL (11.27-16.99) H 02/06/23 16:07 Hct 53.4 % (37-53) H 02/06/23 16:07 MCV 99.3 fl (82-101) 02/06/23 16:07 MCH 32.9 pg (27-33) 02/06/23 16:07 MCHC 33.1 g/dL (30-55) 02/06/23 16:07 RDW 13.3 % (12.1-15.1) 02/06/23 16:07 Plt Count 295 10^3/cmm (157-399) 02/06/23 16:07 MPV 8.7 fL (7.4-10.4) 02/06/23 16:07 Neut % (Auto) 58.5 % 02/06/23 16:07 Lymph % (Auto) 30.2 % 02/06/23 16:07 [place] % (Auto) 7.2 % 02/06/23 16:07 Eos % (Auto) 2.1 % 02/06/23 16:07 Baso % (Auto) 1.5 % 02/06/23 16:07 Neut # (Auto) 5.82 10^3/uL (1.8-7.7) 02/06/23 16:07 Lymph # (Auto) 3.0 10^3/uL (0.8-4.8) 02/06/23 16:07 [place] # (Auto) 0.7 10^3/uL (0.2-0.9) 02/06/23 16:07 Eos # (Auto) 0.2 10^3/uL (0.0-0.8) 02/06/23 16:07 Baso # (Auto) 0.2 10^3/uL (0.0-0.1) H 02/06/23 16:07 Nucleated RBC % (auto) 0 % 02/06/23 16:07 Nucleated RBCs # 0.0 /100WBC 02/06/23 16:07 Sodium 140 mmol/L (136-145) 02/06/23 16:07 Potassium 4.1 mmol/L (3.5-5.1) 02/06/23 16:07 Chloride 102 mmol/L (98-107) 02/06/23 16:07 Carbon Dioxide 27 mmol/L (22-29) 02/06/23 16:07 Anion Gap 15.1 (5-19) 02/06/23 16:07 BUN 17 mg/dL (6-20) 02/06/23 16:07 Creatinine 1.0 mg/dL (0.7-1.2) 02/06/23 16:07 GFR Calculation 77.9 mL/min (90-130) L 02/06/23 16:07 Glucose 122 mg/dL (65-115) H 02/06/23 16:07 Calculated Osmolality 293 mOsm/kg (285-295) 02/06/23 16:07 Calcium 8.9 mg/dL (8.5-10.5) 02/06/23 16:07 Total Bilirubin 0.3 mg/dL (0.15-1.2) 02/06/23 16:07 AST 13 U/L (0-40) 02/06/23 16:07 ALT 17 U/L (0-41) 02/06/23 16:07 Alkaline Phosphatase 142 U/L (40-130) H 02/06/23 16:07 Total Protein 7.2 g/dL (6.6-8.7) 02/06/23 16:07 Albumin 4.2 g/dL (3.5-5.2) 02/06/23 16:07 Globulin 3.0 g/dL (1.3-4.6) 02/06/23 16:07 Discharge Plan Discharge Patient Disposition: Home Clinical Impression: Right flank pain Condition: Stable Prescriptions: New hydrocodone-acetaminophen 5-325 mg tablet 1 tab PO Q8H PRN (Reason: pain) Qty: 7 0RF ondansetron 4 mg film 4 mg PO DAILY PRN (Reason: nausea and vomiting) Qty: 10 0RF No Action levothyroxine 150 mcg tablet 150 mcg PO DAILY pravastatin 20 mg tablet 20 mg PO DAILY montelukast [Singulair] 10 mg tablet 10 mg PO DAILY gabapentin 300 mg capsule 300 mg PO TID baclofen 10 mg tablet 10 mg PO TID glipizide 10 mg tablet 20 mg PO BID diazepam 5 mg tablet 5 mg PO BID PRN (Reason: Anxiety) Glyxambi 25-5 mg tablet 1 tab PO QAM Eliquis 5 mg tablet 5 mg PO BID Narcan 4 mg/actuation spray,non-aerosol 4 mg INTRANASAL Q2M PRN (Reason: Sedation) furosemide [Lasix] 20 mg tablet 20 mg PO DAILY Spiriva with HandiHaler 18 mcg capsule, w/inhalation device 1 cap INHALATION DAILY pregabalin [Lyrica] 75 mg capsule 75 mg PO TID glipizide 5 mg tablet 5 mg PO BID metformin 500 mg tablet 500 mg PO TID (DME) standing walker See Rx Instructions .Route .MEDSUPPLY Qty: 1 0RF Rx Instructions: As directed eszopiclone [Lunesta] 2 mg Tablet 2 mg PO BEDTIME PRN (Reason: Insomnia) cetirizine 10 mg Tablet 10 mg PO DAILY sennosides-docusate sodium [Senna-S] 8.6-50 mg Tablet 1 tab-cap PO DAILY PRN (Reason: Constipation) Nitrostat 0.4 mg Tablet, Sublingual 0.4 mg SUBLINGUAL Q5M PRN (Reason: Chest Pain) Rx Instructions: do not exceed 3 doses per episode Discharge Orders: Discharge ED (Routine); Ordered 02/06/23 Ordered By: Rudolph Carpio Referrals: Shay Campbell [Primary Care Provider] - Patient Instructions: Flank Pain (ED), Opioid Safety, Pain Management Activity Restrictions/Additional Instructions: Return for fever, vomiting liquids or medications, worsening pain despite treatment, any other concerning symptoms. See your doctor at the beginning of the week. Coding Level of Care Code ED Color Expert for Milagros Jacobson
--- NOTE | 2023-02-06 18:05 | CTR_ITS ---
PROCEDURE INFORMATION: Exam: CT Abdomen And Pelvis Without Contrast Exam date and time: 02/06/2023 6:26 PM Age: 52 years old Clinical indication: Abdominal pain; Localized; Right; Prior surgery; Surgery date: 6+ months; Surgery type: Ivc filter. Left iliac stent; Patient HX: C/O RT sided abd pain x 1 week; Additional info: Abdominal pain/r flank pain TECHNIQUE: Imaging protocol: Computed tomography of the abdomen and pelvis without contrast. Radiation optimization: All CT scans at this facility use at least one of these dose optimization techniques: automated exposure control; mA and/or kV adjustment per patient size (includes targeted exams where dose is matched to clinical indication); or iterative reconstruction. REPORTING DATA: Count of CT and Cardiac NM exams in prior 12 months: This patient has received 2 known CTs and 0 known cardiac nuclear medicine studies in the 12 months prior to the current study. COMPARISON: US scrotum [id number] 07/09/2021 2:03 PM RADIATION DOSE METRICS: Total DLP (mGy-cm): 663.37 FINDINGS: Lungs: Multiple small nodules in the right lower lobe measuring up to 3 mm. Liver: Normal. No mass. Gallbladder and bile ducts: Normal. No calcified stones. No ductal dilation. Pancreas: Normal. No ductal dilation. Spleen: Normal. No splenomegaly. Adrenal glands: Normal. No mass. Kidneys and ureters: Normal. No hydronephrosis. Stomach and bowel: Unremarkable. No obstruction. No mucosal thickening. Appendix: The appendix is visualized and is normal. Intraperitoneal space: Unremarkable. No free air. No significant fluid collection. Vasculature: Infrarenal IVC filter, with the limbs extending outside the vessel wall. Mild calcified plaque in the arteries. No aneurysm. Lymph nodes: Unremarkable. No enlarged lymph nodes. Urinary bladder: Unremarkable as visualized. Reproductive: Unremarkable as visualized. Bones/joints: Degenerative changes of the spine. No acute fracture. Soft tissues: 5.6 cm lipoma in the left tensor fasciae latae muscle. CT/CT abdomen pelvis wo con [id number] IMPRESSION: 1. No acute findings. 2. Infrarenal IVC filter with the limbs extending through the outer wall of the vessel. 3. Small pulmonary nodules measuring up to 3 mm. For patients at low risk (minimal or absent history of smoking and of other known risk factors), no routine follow-up is indicated. For patients at high risk (history of smoking or of other known risk factors), consider optional CT Chest at 12 months. (Reference: Yael) References: Yael Bryant et al. Guidelines for Management of Incidental Pulmonary Nodules Detected on CT Images: From the Fleischner Society 2017. Radiology. 2017;284(1):228-243. COMMENTS: For patients with an IVC filter, recommend assessment for a management plan for the patient's IVC filter. If there is no established management plan, recommend referral to an interventional clinician on a nonemergent basis for evaluation.
[2023-02-06] MEDS: morphine 4 mg/mL SDV 1 mL IVP (18:51)
[2023-02-06 18:54] VITALS: RESP 18; O2SAT 98
[2023-02-06 19:10] VITALS: RESP 18
[2023-02-06 20:14] VITALS: PULSE 96; RESP 16; O2SAT 93
== END 2023-02-06 20:15 | disposition home or self-care (01) ==
PROVIDERS: Physician Assistant; Emergency Provider Emergency Medicine; PCP Family Medicine
DX: R10.9 Unspecified abdominal pain (principal); Z79.01 Long term (current) use of anticoagulants; Z79.84 Long term (current) use of oral hypoglycemic drugs; F17.210 Nicotine dependence, cigarettes, uncomplicated; I25.10 Atherosclerotic heart disease of native coronary artery without angina pectoris; J44.9 Chronic obstructive pulmonary disease, unspecified; E11.9 Type 2 diabetes mellitus without complications; Z86.73 Personal history of transient ischemic attack (TIA), and cerebral infarction without residual deficits; I25.2 Old myocardial infarction
CPT/HCPCS: 36415; 74176; 80053; 85025; 96374; 99285; J2270

== ENCOUNTER → 2024-03-28 15:15 | Outpatient (BNVA) | payer MEDICARE, SELFPAY | PROVIDERS: PCP Family Medicine; Visit Provider Podiatrist Foot & Ankle Surgery | DX: B35.1 Tinea unguium (principal); G62.9 Polyneuropathy, unspecified; E11.65 Type 2 diabetes mellitus with hyperglycemia; I73.9 Peripheral vascular disease, unspecified; B35.3 Tinea pedis; Z79.84 Long term (current) use of oral hypoglycemic drugs | CPT/HCPCS: 11721; 99204 ==

== ENCOUNTER 2024-04-25 14:00 | Outpatient (CLI) | payer MEDICARE, SELFPAY ==
--- NOTE | 2024-04-25 14:10 | CT_ITS ---
WS: [id number] LDCT LUNG CANCER SCREENING HISTORY: NICOTINE DEPENDENCE,CIGARETTES TECHNIQUE: Axial imaging performed from the apices to 1 cm below the costophrenic angles. Coronal and sagittal reformats are submitted with axial MIP series. All CT scans at [facility] use at least one of these dose optimization techniques: automated exposure control; mA and/or kV adjustment per patient size (includes targeted exams where dose is matched to clinical indication); or iterativ e reconstruction. DLP: 75.61 mGy.cm DIvol: Mean CTDIvol: 1.50 (mGy) COMPARISON: None available. Diagnostic quality: Satisfactory Lungs: Mild pulmonary hyperinflation. Subpleural 4 mm nodule RIGHT middle lobe. Pleural tag at the RI GHT apex is 3 mm. No mass or endobronchial lesions. Heart: Normal size heart with no pericardial effusion.. Other findings: No mediastinal or hilar adenopathy. Normal size aorta and pulmonary artery. Stomach i s markedly distended with food products. No adrenal mass. CT/CT lung screening [id number] IMPRESSION: LUNG-RADS: 2-Benign Appearance or Behavior FOLLOW UP: 12 Month: Continue annual screening with LDCT OTHER FINDINGS (S MODIFIER): None.
== END 2024-04-25 14:01 | disposition home or self-care (01) ==
LOC: RAD 14:03
PROVIDERS: PCP Family Medicine; Visit Provider Family Medicine
DX: Z12.2 Encounter for screening for malignant neoplasm of respiratory organs (principal); F17.210 Nicotine dependence, cigarettes, uncomplicated; R91.1 Solitary pulmonary nodule
CPT/HCPCS: 71271

== ENCOUNTER → 2024-06-14 14:00 | Outpatient (BNVA) | payer MEDICARE, MEDICAID, SELFPAY | PROVIDERS: PCP Family Medicine; Visit Provider Podiatrist Foot & Ankle Surgery | DX: M79.672 Pain in left foot (principal); B35.1 Tinea unguium; G62.9 Polyneuropathy, unspecified; E11.65 Type 2 diabetes mellitus with hyperglycemia; I73.9 Peripheral vascular disease, unspecified; B35.3 Tinea pedis; L84 Corns and callosities; Z79.84 Long term (current) use of oral hypoglycemic drugs | CPT/HCPCS: 11055; 11721; 73630; 99213 ==